=== PATIENT | female | born 1950 | race Caucasian/White ===

== ENCOUNTER 2016-11-24 08:58 | Outpatient (CLI) | payer MEDICARE, BC | END 2016-11-24 09:37 | LOC: D.MAMMO 08:58 | DX: Z98.890 Other specified postprocedural states (principal) ==

== ENCOUNTER → 2019-02-06 19:02 | Outpatient (CLI) | payer MEDICARE, BC ==
[2019-02-06 19:26] LABS: CALC OSMOLALITY 290 mosm/kg (275-300); CALCIUM 10.3 mg/dL (8.5-10.1); CARBON DIOXIDE 27.8 mmol/L (21.0-32.0); CHLORIDE - SERUM 106 mmol/L (98-107); CREATININE - SERUM 0.8 mg/dL (0.6-1.3); GLUCOSE 93 mg/dL (74-106); POTASSIUM - SERUM 4.5 mmol/L (3.5-5.1); SODIUM 146 mmol/L (136-145); UREA NITROGEN 12 mg/dL (7-18); eGFR NON AFRICAN AMERICAN 75 mL/min (90-120)
== END | disposition home or self-care (01) ==
LOC: D.LABREF 19:02
PROVIDERS: ATTEND Internal Medicine Interventional Cardiology
DX: E87.1 Hypo-osmolality and hyponatremia (principal)

== ENCOUNTER → 2019-06-25 09:52 | Outpatient (CLI) | payer MEDICARE, BC ==
--- NOTE | ~2019-06-25 | ST ---
PATIENT:MUKUL MACEDO MEDICAL RECORD: [id number] SEX: F LOCATION:[facility] ORDER #: ADMISSION DATE: 06/25/19 AGE OF PATIENT: 69 REFERRING PHYSICIAN: INTERPRETING PHYSICIAN: ELY THOMAS MD DATE OF SERVICE: 06/25/2019 PROCEDURE: Nuclear stress test. INDICATION: Angina, hypertension. TECHNIQUE: She was exercised on standard Lexiscan protocol with 33 mCi of sestamibi injected at peak stress, 11 mCi used previously for rest images. FINDINGS: Gated SPECT reveals preserved ejection fraction at 82% with good wall motion and thickening and brightening throughout all segments. SPECT imaging Cardiolite was used as myocardial fusion agent. There is homogeneous uptake throughout all segments at rest and stress with no evidence of inducible ischemia or previous infarction. OVERALL IMPRESSION: 1. This is a normal nuclear stress test with no evidence of inducible ischemia or previous infarction. 2. Gated SPECT reveals a preserved ejection fraction at 82%. In this patient with ongoing symptomatology, the current scan does not suggest the presence of hemodynamically significant coronary artery disease. Evaluate noncardiac etiology of chest pain. TRANSINT:[id number] Voice Confirmation ID: [id number] DOCUMENT ID: [id number] ELY THOMAS MD CC: PRESTON COLLINS [id number] DICTATION DATE: 06/25/19 1658 BIBLICAL STUDIES PROFESSOR: 06/26/19 0732 [facility] CLI 06/25/19 [place] [id number] [place] [address]
== END | disposition home or self-care (01) ==
LOC: D.HCCARDIO 09:52
PROVIDERS: ATTEND Internal Medicine Interventional Cardiology
DX: I20.9 Angina pectoris, unspecified (principal)

== ENCOUNTER → 2019-12-03 11:41 | Outpatient (CLI) | payer MEDICARE, BC ==
--- NOTE | 2019-12-05 09:31 | EC ---
PATIENT:MUKUL MACEDO DATE OF SERVICE: 12/03/19 SEX: F MEDICAL RECORD: [id number] DATE OF : 50 LOCATION:[facility] AGE OF PATIENT: 69 ADMISSION DATE: 12/03/19 REFERRING PHYSICIAN: INTERPRETING PHYSICIAN: LUCIANA NASCIMENTO MD ECHOCARDIOGRAM REPORT ECHO CHARGES 4 ECHO COMPLETE Date: 12/03/19 CLINICAL DIAGNOSIS: HTN/HX OF MR/TR ECHOCARDIOGRAPHIC MEASUREMENTS (adult normal given) AC root (d.<3.7cm) 3.0 cm LV Septum d (<1.2 cm> 1.1 cm Valve Excursion 1.4 cm LV Septum (systole) 1.4 cm Left Atria (s.<4.0cm> 3.2 cm LVPW d(<1.2cm) 1.4 cm RV (d.<2.3cm) 3.4 cm LVPW (sytole) 1.6 cm LV diastole(<5.6CM) 4.2 cm MV E-F(>70mm/sec) cm LV systole 2.6 cm LVOT Diameter 1.7 cm MV exc.(>10mm) 1.3 cm Est.ejection fraction (50-75%) % DOPPLER: LVIT cm/sec A 59.0 cm/sec E 98.0 cm/sec LA cm/sec RVSP 46 mmHg LVOT 94 cm/sec AOP1/2T m/s Asc. Ao 155 cm/sec RVOT 77 cm/sec RA cm/sec PA 119 cm/sec AV Gradient Peak 9.66 mmHg AV Mean 5.16 mmHg AV Area 1.5 cm MV Gradient Peak 4.82 mmHg MV Mean 1.64 mmHg MV Area cm COMMENTS: Airdox Fitter: 2 ALESHA CADENA Associate Director Of Biostatistics: 3 Dr. Llanos TAPE# PACS Pericardial Effusion N DATE OF SERVICE: Adequate 2D echo, color flow, spectral Doppler, and M-Mode. No LVH. LV internal dimension is normal. Wall motion is normal. EF is greater than or equal to 55%. Aortic valve is tricuspid. No evidence of stenosis by Doppler interrogation. Left atrium is normal at 3.2 cm. Mitral valve shows prolapse. Trace MR. Right-sided chambers are grossly normal. Mild TR. TRANSINT:[id number] Voice Confirmation ID: [id number] DOCUMENT ID: [id number] ECHOCARDIOGRAM REPORT [id number] MUKUL MACEDO GREGORY A MD at 0931 CC: [id number] DICTATION DATE: 12/04/19 1300 SECRETARY ADMINISTRATIVE ASSISTANT: 12/04/19 2358 [facility] CLI 12/03/19 [place] [id number] [place] [id number]
== END | disposition home or self-care (01) ==
LOC: D.HCCECHO 11:30
PROVIDERS: ATTEND Internal Medicine Interventional Cardiology
DX: I10 Essential (primary) hypertension (principal)